=== PATIENT | female | born 1985 | race Caucasian/White ===

== ENCOUNTER 2016-08-01 22:59 | Emergency (ER) | payer OTHER | END 2016-08-02 00:38 | disposition home or self-care (01) | LOC: ER 22:59 | DX: T20.16XA Burn of first degree of forehead and cheek, initial encounter (principal); T22.10XA Burn of first degree of shoulder and upper limb, except wrist and hand, unspecified site, initial encounter; T26.41XA Burn of right eye and adnexa, part unspecified, initial encounter; F17.210 Nicotine dependence, cigarettes, uncomplicated; Z87.442 Personal history of urinary calculi; Z98.51 Tubal ligation status; W40.1XXA Explosion of explosive gases, initial encounter; Y92.009 Unspecified place in unspecified non-institutional (private) residence as the place of occurrence of the external cause ==